=== PATIENT | female | born 1940 | race Hispanic/Latino ===

== ENCOUNTER 2017-02-19 12:57 | Emergency (ER) | payer MEDICARE, MEDICAID ==
[2017-02-19 13:00] VITALS: RESP 20; O2SAT 97
[2017-02-19 13:13] VITALS: BMI 19.5
[2017-02-19] MEDS ORDERED: Bacitracin 500 Units/gm Oint Foilpak UD TOP ONE (13:36)
[2017-02-19] MEDS ORDERED: Bacitracin 500 Units/gm Oint Foilpak UD ONE (13:39)
--- NOTE | 2017-02-19 13:45 | C.PDOC ---
History Of Present Illness Pt states she fell down stairs yesterday. Denies LOC or head injury. - HPI Time Seen by Provider: 02/19/17 13:05 Chief Complaint (Nursing): Trauma History Per: Patient Injury Occurred (Timing): Days Ago: (1) Location Of Injury: Right: Hand, Left: Ankle, Back Severity: Moderate Additional History Per: Prior Records - Fall Fall:Prior To Injury: Lost Balance Past Medical History Reviewed: Historical Data, Nursing Documentation, Vital Signs Vital Signs: Last Vital Signs Temp 97.7 F 02/19/17 14:07 Pulse 58 L 02/19/17 14:07 Resp 20 02/19/17 12:59 BP 166/78 H 02/19/17 14:07 Pulse Ox 97 02/19/17 14:07 - Medical History PMH: Anxiety, Arthritis Surgical History: No Surg Hx Family History: States: Unknown Family Hx - Social History Hx Alcohol Use: No Hx Substance Use: No Review Of Systems Except As Marked, All Systems Reviewed And Found Negative. Constitutional: Negative for: Fever, Weakness Cardiovascular: Negative for: Chest Pain Respiratory: Negative for: Shortness of Breath Gastrointestinal: Negative for: Vomiting, Abdominal Pain Genitourinary: Negative for: Hematuria Neurological: Negative for: Weakness, Numbness, Seizures, Altered Mental Status , Headache Physical Exam - Physical Exam Appears: Non-toxic, No Acute Distress Skin: Normal Color, Warm, Dry Head: Atraumatic, Normacephalic Eye(s): bilateral: PERRL, EOMI Neck: Normal ROM, No Midline Cervical Tenderness, No Step Off Deformity, Supple Chest: Symmetrical, No Deformity, No Tenderness Cardiovascular: Rhythm Regular Respiratory: Normal Breath Sounds, No Accessory Muscle Use Gastrointestinal/Abdominal: Soft, No Tenderness Back: No CVA Tenderness, No Vertebral Tenderness, Other (abrasion on left mid back) Extremity: Normal ROM, Tenderness (around left lateral maleolus), No Deformity, Other (Skin tear on dorsum of right hand) Pulses: Right Radial: Normal, Left Dorsalis Pedis: Normal Neurological/Psych: Oriented x3, Normal Speech, Normal Cognition, Normal Motor, Normal Sensation ED Course And Treatment O2 Sat by Pulse Oximetry: 97 Pulse Ox Interpretation: Normal - Radiology Nexus Criteria: Negative - Other Rad Right hand x-rays X-Ray: Interpreted by Me, Viewed By Me Interpretation: No acute fx or dislocation. Left ankle x-rays X-Ray: Interpreted by Me, Viewed By Me Interpretation: No acute fx or dislocation. Progress Note: Right hand skin tear was debrided by me, then I applied Bacitracin ointment and wrapped the right hand with Kerlex abdi. I also applied an LUIS wrap to left ankle. Reassessment Condition: Improved Disposition Counseled Patient/Family Regarding: Studies Performed, Diagnosis, Need For Followup, Rx Given - Disposition Disposition: HOME/ ROUTINE Disposition Time: 14:13 Condition: IMPROVED Additional Instructions: Follow up with your doctor within 2-3 days for a wound check and to repeat your blood pressure. Return to the ER if you develop redness, swelling, pus drainage , worsening of symptoms or if you have any other concerns. Prescriptions: Cephalexin [Keflex] 500 mg PO TID #15 capsule Instructions: Ankle Sprain (ED), Skin Tear (ED) Forms: [facility] (Tuvaluan) - Clinical Impression Clinical Impression: Fall down stairs, Left ankle sprain, Skin tear of right hand without complication, Abrasion of left side of back
--- NOTE | 2017-02-19 13:51 | RAD ---
PROCEDURE: Left Ankle Radiographs. HISTORY: Pain s/p fall yesterday COMPARISON: None FINDINGS: BONES: No fracture. Plantar calcaneal spur incidentally noted. JOINTS: Normal. No osteoarthritis. Ankle mortise maintained. Talar dome intact SOFT TISSUES: Normal. OTHER FINDINGS: None. IMPRESSION: No acute fracture
--- NOTE | 2017-02-19 13:54 | RAD ---
PROCEDURE: Right Hand Radiographs. HISTORY: Injured during fall yesterday COMPARISON: None. FINDINGS: BONES: No acute fracture. 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 Mild subluxation at in see P 1 common nonspecific. No articular erosions. SOFT TISSUES: Normal. OTHER FINDINGS: None. IMPRESSION: No acute fracture.
[2017-02-19 14:08] VITALS: BP 166/78; PULSE 58; TEMP 97.7
== END 2017-02-19 14:29 | disposition home or self-care (01) ==
LOC: C.ER 12:57
DX: S61.411A Laceration without foreign body of right hand, initial encounter (principal); S93.402A Sprain of unspecified ligament of left ankle, initial encounter; S20.412A Abrasion of left back wall of thorax, initial encounter; W10.9XXA Fall (on) (from) unspecified stairs and steps, initial encounter; Y92.9 Unspecified place or not applicable

== ENCOUNTER 2018-07-23 14:01 | Emergency (ER) | payer MEDICARE, MEDICAID ==
[2018-07-23 14:39] VITALS: BMI 21.9
--- NOTE | 2018-07-23 15:18 | C.PDOC ---
History Of Present Illness 77 year old female with a history of anxiety and chronic pain presents to the emergency department status-post noticing a large bruise last night associated with an ache in her left upper arm. Patient does not recall an injury, but states that it's possible she sustained an injury and forgot. Patient denies weakness and numbness. Patient reports receiving Cortisone injections in her left shoulder for chronic pain, and received her last one two days ago. Patient denies swelling to the left arm, and denies bruising elsewhere. PMD: Dr. Tucker Time Seen by Provider: 07/23/18 15:04 Chief Complaint (Nursing): Upper Extremity Problem/Injury History Per: Patient History/Exam Limitations: no limitations Onset/Duration Of Symptoms: Days (1) Current Symptoms Are (Timing): Still Present Quality: Aching, "Pain" Past Medical History Reviewed: Historical Data, Nursing Documentation, Vital Signs Vital Signs: Last Vital Signs Temp 98.0 F 07/23/18 14:39 Pulse 62 07/23/18 14:39 Resp 20 07/23/18 14:39 BP 113/62 07/23/18 14:39 Pulse Ox 98 07/23/18 14:39 - Medical History PMH: Anxiety, Arthritis, HTN, Hypercholesterolemia Surgical History: No Surg Hx Family History: States: No Known Family Hx - Social History Hx Alcohol Use: No Hx Substance Use: No - Immunization History Hx Tetanus Toxoid Vaccination: No Hx Influenza Vaccination: No Hx Pneumococcal Vaccination: No Review Of Systems Except As Marked, All Systems Reviewed And Found Negative. Musculoskeletal: Positive for: Arm Pain (left upper arm) Skin: Positive for: Bruising Physical Exam - Physical Exam Skin: Ecchymosis (large, well-demarcated area of ecchymosis to the medial left upper arm.), No Other (surround erythema or lesions. ) Lymphatic: No Adenopathy (axillary lymph adenopathy), No Axilla Node Tenderness Extremity: Tenderness (mild tenderness at the medial left upper arm. ), Swelling (mild swelling at the medial left upper arm.) Neurological/Psych: Other (Neurovascularly intact.) ED Course And Treatment O2 Sat by Pulse Oximetry: 98 (RA) Pulse Ox Interpretation: Normal Medical Decision Making Medical Decision Making: Plan: XR Left Humerus XR Left Shoulder Impression: Hematoma Differential Diagnosis: Contusion, fracture. XR Left Shoulder: IMPRESSION: No acute displaced fracture or dislocation evident. If symptoms persist or if there is continued clinical concern, x-ray follow-up in 7-10 days should be considered. XR Left Humerus IMPRESSION: No acute displaced fracture, dislocation, or significant joint effusion identified. If symptoms persist, or if there is continued clinical concern, x-ray follow-up in 7-10 days should be considered. Disposition - Disposition Disposition: HOME/ ROUTINE Disposition Time: 15:59 Condition: STABLE Additional Instructions: FOLLOW UP WITH YOUR DOCTOR ON FRIDAY FOR REEVALUATION RETURN TO ER FOR: --NEW UNEXPLAINED BRUISES --UNUSUAL DENTAL, RECTAL OR VAGINAL BLEEDING --SEVERE PAIN --SWELLING EXTENDING TO THE LOWER PART OF YOUR ARM --ANY OTHER WORRISOME SYMPTOMS Instructions: Preventing Falls in the Older Adult, Contusion (DC) Forms: [facility] (Maltese) - Clinical Impression Clinical Impression: Hematoma of arm - Scribe Statement The provider has reviewed the documentation as recorded by the Scribe (Dylan Trevino) Provider Attestation: All medical record entries made by the Scribe were at my direction and personally dictated by me. I have reviewed the chart and agree that the record accurately reflects my personal performance of the history, physical exam, medical decision making, and the department course for this patient. I have also personally directed, reviewed, and agree with the discharge instructions and disposition.
--- NOTE | 2018-07-23 15:39 | RAD ---
PROCEDURE: Radiographs of the Left Shoulder HISTORY: possible injury bruising COMPARISON: Left shoulder radiographs performed 10/15/12 FINDINGS: BONES: Osseous demineralization. No acute displaced fracture. The distal clavicle and underlying ribs appear intact. JOINTS: No acute dislocation. Acromioclavicular arthropathy. Narrowing of the glenohumeral joint space. SOFT TISSUES: Soft tissues appear unremarkable. No evidence of radiopaque foreign body. Atherosclerotic calcifications of the aortic knob. IMPRESSION: No acute displaced fracture or dislocation evident. If symptoms persist or if there is continued clinical concern, x-ray follow-up in 7-10 days should be considered.
--- NOTE | 2018-07-23 15:40 | RAD ---
PROCEDURE: Radiographs of the left humerus. HISTORY: possible injury bruising COMPARISON: None available. FINDINGS: BONES: Osseous demineralization. No acute displaced fracture or dislocation. SOFT TISSUES: Unremarkable. No evidence of radiopaque foreign body. OTHER FINDINGS: None. IMPRESSION: No acute displaced fracture, dislocation, or significant joint effusion identified. If symptoms persist, or if there is continued clinical concern, x-ray follow-up in 7-10 days should be considered.
[2018-07-23 16:41] VITALS: BP 115/65; PULSE 63; RESP 18; TEMP 98.1
[2018-07-23 17:46] VITALS: O2SAT 98
== END 2018-07-23 16:39 | disposition home or self-care (01) ==
LOC: C.ER 14:01
DX: S40.022A Contusion of left upper arm, initial encounter (principal); X58.XXXA Exposure to other specified factors, initial encounter

== ENCOUNTER 2018-09-11 13:01 | Emergency (ER) | payer MEDICARE, MEDICAID ==
[2018-09-11 13:01] VITALS: BMI 21.9
[2018-09-11 13:17] VITALS: BP 138/71; PULSE 63; RESP 18; TEMP 98.3; O2SAT 100
--- NOTE | 2018-09-11 13:35 | C.PDOC ---
Time Seen by Provider: 09/11/18 13:22 Chief Complaint (Nursing): Medical Clearance Past Medical History Vital Signs: Last Vital Signs Temp 98.3 F 09/11/18 13:15 Pulse 63 09/11/18 13:15 Resp 18 09/11/18 13:15 BP 138/71 09/11/18 13:15 Pulse Ox 100 09/11/18 13:15 - Medical History PMH: Anxiety, Arthritis, HTN, Hypercholesterolemia Family History: States: Unknown Family Hx - Social History Hx Alcohol Use: No Hx Substance Use: No - Immunization History Hx Tetanus Toxoid Vaccination: No Hx Influenza Vaccination: No Hx Pneumococcal Vaccination: No ED Course And Treatment O2 Sat by Pulse Oximetry: 100 Disposition - Disposition Disposition: HOME/ ROUTINE Disposition Time: 13:39 Condition: STABLE Additional Instructions: Please have your live in partner go to the nearest Emergency Department for evaluation due to being exposed to mold. I, Dr. French will be at [facility] on FridaySeptember 15. He may require an admission for his pulmonary disease. The number to the Emergency Department is [phone]. Forms: [facility] (T[place]ese), General Discharge Instructions - POA Present On Arrival: None - Clinical Impression Clinical Impression: Medical assessment
== END 2018-09-11 13:57 | disposition home or self-care (01) ==
LOC: C.ER 13:01
DX: Z00.00 Encounter for general adult medical examination without abnormal findings (principal); E78.00 Pure hypercholesterolemia, unspecified; I10 Essential (primary) hypertension